=== PATIENT | female | born 1985 | race Hispanic/Latino ===

== ENCOUNTER 2024-11-23 09:56 | Day surgery (SDC) | payer SELFPAY ==
[2024-11-23 10:46] LABS: #Basophils 0.03 10x3/uL (0.0-0.2); #Eosinophils 0.14 10x3/uL (0.0-0.5); #Monocytes 0.61 10x3/uL (0.0-1.1); #Neutrophils 4.46 10x3/uL (1.5-8.4); %Basophils 0.4 % (0.0-2.0); %Eosinophils 2.0 % (0.0-6.0); %Lymphocytes 25.6 % (18.0-47.0); %Monocytes 8.6 % (0.0-10.0); %Neutrophils 62.6 % (40.0-75.0); Hematocrit 36.1 % (34.9-44.5); Hemoglobin 11.8 g/dL (12.0-15.5); Mean Corpuscular Hemoglobin 29.4 pg (27.0-33.0); Mean Corpuscular Volume 90.0 fL (81.6-98.3); Platelet Count 166 10x3/uL (150-450); Red Blood Cell (RBC) Count 4.01 10x6/uL (3.90-5.03); White Blood Cell (WBC) Count 7.12 10x3/uL (3.5-10.5)
[2024-11-23 11:02] LABS: ALT (SGPT) 16 U/L (Less than 34); AST (SGOT) 55 U/L (11-34); Albumin 3.3 g/dL (3.1-4.5); Alkaline Phosphatase 161 U/L (40-110); Anion Gap 12 mmol/L (10-20); BUN (Urea Nitrogen) 8 mg/dL (7.0-18.7); Bilirubin, Total 0.3 mg/dL (0.3-1.2); Calc. Creatinine Clearance 0 mL/min (70-130); Calcium 9.0 mg/dL (7.8-10.44); Carbon Dioxide 20 mmol/L (22-29); Chloride 108 mmol/L (98-107); Globulin 4.0 g/dL (2.4-3.5); Glucose 83 mg/dL (70-105); Potassium 4.0 mmol/L (3.5-5.1); Sodium 136 mmol/L (136-145)
[2024-11-23 11:32] LABS: Protein, Urine Random Quant 16.0 mg/dL (1-14)
[2024-11-25 10:53] LABS: Group B Streptococcus by PCR Not Detected (NotDetected)
== END 2024-11-23 14:15 | disposition home or self-care (01) ==
LOC: CSHLD/OP 09:56
PROVIDERS: ATTEND Emergency Medicine
DX: O99.891 Other specified diseases and conditions complicating pregnancy (principal); R03.0 Elevated blood-pressure reading, without diagnosis of hypertension; O24.419 Gestational diabetes mellitus in pregnancy, unspecified control; O09.523 Supervision of elderly multigravida, third trimester; Z3A.38 38 weeks gestation of pregnancy
CPT/HCPCS: 36415; 76815; 80053; 82570; 84156; 85025; 87653; 99285

== ENCOUNTER 2024-12-01 19:00 | Inpatient (IN) | payer SELFPAY ==
[~2024-12-01 19:00] MED LIST: Bupivacaine 0.25% HCL 30 ML VIAL ONE
[2024-12-01] MEDS ORDERED: Ondansetron PF 4 MG/2 ML Vial IVP PRN (21:47)
[2024-12-01] MEDS ORDERED: Acetaminophen 500 MG TAB PO PRN (21:47)
[2024-12-01] MEDS ORDERED: Ibuprofen 800 MG TAB PO PRN (21:47)
[2024-12-01] MEDS ORDERED: Tranexamic Acid 1,000 MG/10 ML VIAL IVP PRN (21:47)
[2024-12-01] MEDS ORDERED: Diphenoxylate HCl/Atropine Tablet PO PRN ×2 (21:47)
[2024-12-01] MEDS ORDERED: Carboprost 250 MCG/ML AMP IM PRN (21:47)
[2024-12-01] MEDS ORDERED: hydrALAZINE 20 MG/ML VIAL SLOW IVP PRN (21:47)
[2024-12-01] MEDS ORDERED: Lidocaine 1% (PF) 30 ML VIAL SC PRN (21:47)
[2024-12-01] MEDS ORDERED: Methylergonovine 0.2 MG/ML VIAL IM PRN (21:47)
[2024-12-01] MEDS ORDERED: Oxytocin 30 units/NS 500 ML 500 ML IV SCH ×2 (22:00)
[2024-12-02 01:34] VITALS: BMI 30.3
[2024-12-02 02:24] LABS: Hematocrit 39.0 % (34.9-44.5); Hemoglobin 12.6 g/dL (12.0-15.5); Mean Corpuscular Hemoglobin 29.2 pg (27.0-33.0); Mean Corpuscular Volume 90.5 fL (81.6-98.3); Platelet Count 179 10x3/uL (150-450); Red Blood Cell (RBC) Count 4.31 10x6/uL (3.90-5.03); White Blood Cell (WBC) Count 7.61 10x3/uL (3.5-10.5)
[2024-12-02 02:39] LABS: ALT (SGPT) 16 U/L (Less than 34); AST (SGOT) 22 U/L (11-34); Albumin 3.6 g/dL (3.1-4.5); Alkaline Phosphatase 186 U/L (40-110); Anion Gap 14 mmol/L (10-20); BUN (Urea Nitrogen) 11 mg/dL (7.0-18.7); Bilirubin, Total 0.2 mg/dL (0.3-1.2); Calc. Creatinine Clearance 168 mL/min (70-130); Calcium 9.6 mg/dL (7.8-10.44); Carbon Dioxide 20 mmol/L (22-29); Chloride 107 mmol/L (98-107); Globulin 4.2 g/dL (2.4-3.5); Glucose 81 mg/dL (70-105); Potassium 3.9 mmol/L (3.5-5.1); Sodium 137 mmol/L (136-145)
[2024-12-02 02:59] LABS: Hep B Surf Ag - L&D Non-Reactive S/CO (NonReactive)
[2024-12-02 03:00] LABS: Syphilis Antibody Index 0.13 S/CO (<1.00 Non-Reactive)
[2024-12-02] MEDS ORDERED: hydrALAZINE 20 MG/ML VIAL SLOW IVP PRN (04:26)
[2024-12-02 04:34] LABS: Protein, Urine Random Quant 14.0 mg/dL (1-14)
[2024-12-02] MEDS ORDERED: diphenhydrAMINE 50 MG/ML VIAL IVP PRN (15:59)
[2024-12-02] MEDS ORDERED: Communication Order-Pharmacy FS SCH (16:00)
[2024-12-02] MEDS: fentaNYL/Ropivacaine Epidural 100 ML ONE (16:16)
[2024-12-03] MEDS: Ondansetron PF 4 MG/2 ML Vial IVP PRN (03:22)
[2024-12-03] MEDS: fentaNYL 2 mcg/Ropivacaine 0.2% Epidural 100 ML CADD EPIDURAL SCH (03:56)
[2024-12-03] MEDS ORDERED: hydrALAZINE 20 MG/ML VIAL SLOW IVP PRN (08:58)
[2024-12-03] MEDS ORDERED: Preparation H Ointment 28 GM TUBE PR PRN (08:58)
[2024-12-03] MEDS ORDERED: Methylergonovine 0.2 MG/ML VIAL IM PRN (08:58)
[2024-12-03] MEDS ORDERED: Bisacodyl 10 MG SUPP PR PRN (08:58)
[2024-12-03] MEDS ORDERED: diphenhydrAMINE 25 MG CAP PO PRN (08:58)
[2024-12-03] MEDS ORDERED: Ondansetron PF 4 MG/2 ML Vial IVP PRN (08:58)
[2024-12-03] MEDS ORDERED: Milk Of Magnesia 30 ML UDCUP PO PRN (08:58)
[2024-12-03] MEDS ORDERED: Lanolin Ointment 7 GM TUBE TOP PRN (08:58)
[2024-12-03] MEDS ORDERED: Methylergonovine 0.2 MG TAB PO PRN (08:58)
[2024-12-03 08:59] LABS: Analyzer IN Cardio CS NICU; Critical Notified By: Udy, RRT; Critical Notified Whom: Christie, RN L&D; RapidComm Collect By Christie, RN L&D
[2024-12-03 09:00] LABS: Analyzer IN Cardio CS NICU; Critical Notified By: Udy, RRT; Critical Notified Whom: Christie, RN L&D; RapidComm Collect By Christie, RN L&D; pH (Cord, venous) 7.338 (7.250-7.350)
[2024-12-03] MEDS ORDERED: Oxytocin 30 units/NS 500 ML 500 ML IV SCH (09:00)
[2024-12-03] MEDS: Ibuprofen 800 MG TAB PO SCH (13:22)
[2024-12-03] MEDS: Ferrous Sulfate 325 MG TAB PO SCH (18:52)
[2024-12-03] MEDS: Benzocaine-Menthol 82.5 ML CAN TOP PRN (19:01)
[2024-12-04] MEDS: Acetaminophen 325 MG TAB PO PRN (03:10)
[2024-12-04 05:19] LABS: Hematocrit 28.8 % (34.9-44.5); Hemoglobin 9.6 g/dL (12.0-15.5)
[2024-12-05] MEDS: Boostrix 0.5 ML (Tdap) VIAL (>/=7 yrs of age) IM ONE (07:18)
[2024-12-05 07:30] VITALS: BP 136/73; TEMP 97.7
== END 2024-12-05 13:50 | disposition home or self-care (01) | DRG 807 ==
LOC: CSHLD 21:23 → CSHPP 12-03 11:15
PROVIDERS: ADMIT Family Medicine; ATTEND Family Medicine
PROC: 10907ZC Drainage of Amniotic Fluid, Therapeutic from Products of Conception, Via Natural or Artificial Opening (ICD-10-PCS; 2024-12-02)
PROC: 10H07YZ Insertion of Other Device into Products of Conception, Via Natural or Artificial Opening (ICD-10-PCS; 2024-12-02)
PROC: 10E0XZZ Delivery of Products of Conception, External Approach (ICD-10-PCS; principal; 2024-12-03)
PROC: 0KQM0ZZ Repair Perineum Muscle, Open Approach (ICD-10-PCS; 2024-12-03)
PROC: 0UQMXZZ Repair Vulva, External Approach (ICD-10-PCS; 2024-12-03)
DX: O24.420 Gestational diabetes mellitus in childbirth, diet controlled (principal); Z37.0 Single live birth; O13.4 Gestational [pregnancy-induced] hypertension without significant proteinuria, complicating childbirth; O70.1 Second degree perineal laceration during delivery; O66.0 Obstructed labor due to shoulder dystocia; O48.0 Post-term pregnancy; Z3A.40 40 weeks gestation of pregnancy
CPT/HCPCS: 36415; 36416; 51702; 76815; 80053; 82570; 82805; 82951; 84156; 85014; 85018; 85027; 86780; 86850; 86900; 86901; 87340; J0290; J0665; J1580; J2405